=== PATIENT | male | born 1965 | race Caucasian/White ===

== ENCOUNTER → 2022-05-27 09:01 | Outpatient (BNVA) | payer OTHER, SELFPAY | PROVIDERS: Family Provider Nurse Practitioner; Visit Provider Nurse Practitioner Family | DX: M79.641 Pain in right hand (principal) | CPT/HCPCS: 73130 ==

== ENCOUNTER 2022-06-15 14:09 | Outpatient (CLI) | payer OTHER, SELFPAY | END 2022-06-15 14:10 | disposition home or self-care (01) | LOC: SPT 14:10 | PROVIDERS: Family Provider Nurse Practitioner; Visit Provider Orthopaedic Surgery | DX: Z46.89 Encounter for fitting and adjustment of other specified devices (principal); M18.11 Unilateral primary osteoarthritis of first carpometacarpal joint, right hand | CPT/HCPCS: 97760; L3924 ==